=== PATIENT | female | born 1950 | race Hispanic/Latino ===

== ENCOUNTER 2017-08-30 10:57 | Outpatient (RCR) | payer BC ==
[~2017-08-30 10:57] MED LIST: CANASA1000 MG RC; DICLOFENAC POTA50 MG PO; HYOSCYAMINE0.125 M1 SL; HYZAAR 100-12.1 EACH PO; LIALDA1.2 GM PO; LIDOCAINE1 EA TOP; LOSARTAN-HCTZ1 EACH PO; METOPROLOL SUCC50 MG PO; PROAIR HFA INH8.5 GM INH; TYLENOL PO; TYLENOL WITH C1 EACH PO; VITAMIN D2000 UNI1 PO; VOLTAREN100 GM TOP; XANAX0.25 MG PO
== END 2017-09-01 ==
LOC: PT 10:57
PROVIDERS: ATTEND Specialist
DX: Z96.652 Presence of left artificial knee joint (principal); Z47.1 Aftercare following joint replacement surgery; M25.562 Pain in left knee; M25.662 Stiffness of left knee, not elsewhere classified; M62.81 Muscle weakness (generalized); R26.2 Difficulty in walking, not elsewhere classified

== ENCOUNTER → 2017-10-02 | Outpatient (RCR) | payer BC | LOC: PT 09-04 12:57 | PROVIDERS: ATTEND Specialist | DX: Z96.652 Presence of left artificial knee joint (principal); Z47.1 Aftercare following joint replacement surgery; M25.562 Pain in left knee; M25.662 Stiffness of left knee, not elsewhere classified; R26.2 Difficulty in walking, not elsewhere classified; M62.81 Muscle weakness (generalized) ==

== ENCOUNTER 2017-10-04 13:17 | Outpatient (RCR) | payer BC | END 2017-10-30 | LOC: PT 13:17 | PROVIDERS: ATTEND Specialist | DX: Z96.652 Presence of left artificial knee joint (principal); Z47.1 Aftercare following joint replacement surgery; M25.562 Pain in left knee; M25.661 Stiffness of right knee, not elsewhere classified ==

== ENCOUNTER → 2018-03-24 | Outpatient (CLI) | payer BC | LOC: MAMMO 12:03 | PROVIDERS: ATTEND Internal Medicine | DX: Z12.31 Encounter for screening mammogram for malignant neoplasm of breast (principal) | CPT/HCPCS: 77067 ==

== ENCOUNTER → 2018-04-18 | Outpatient (CLI) | payer BC ==
--- NOTE | 2018-04-18 19:30 | Diagnostic Imaging Report ---
EXAM: ABDOMEN-1VIEW (KUB) DATE: 04/18/2018 12:00 AM INDICATION: Pain COMPARISON: 06/06/2017 FINDINGS: Bowel gas pattern nonobstructive. Moderate stool. No distinct pneumoperitoneum, suspicious calcification, or acute osseous finding. IMPRESSION: Moderate stool. Signed by: Dr. Oskar Samayoa MD on 04/18/2018 7:26 PM
== END ==
LOC: RAD 17:41
PROVIDERS: ATTEND Internal Medicine
DX: R10.9 Unspecified abdominal pain (principal)
CPT/HCPCS: 74018

== ENCOUNTER → 2018-11-24 | Outpatient (CLI) | payer BC ==
--- NOTE | 2018-11-24 18:44 | Diagnostic Imaging Report ---
Exam: Left wrist Series. History: Cellulitis, wrist pain, gout Comparison: None. Findings: 3 views of the left wrist. There is decreased bone mineralization. Negative for acute, displaced fracture or dislocation. The joint spaces are relatively well-preserved.. No abnormal soft tissue calcification or mass. Mild soft tissue swelling in the wrist. Impression: 1. Mild soft tissue swelling without acute underlying bony abnormalities. Signed by: Dr. David Spears M.D. on 11/24/2018 6:40 PM
== END ==
LOC: RAD 16:57
PROVIDERS: ATTEND Internal Medicine
DX: M10.9 Gout, unspecified (principal)

== ENCOUNTER → 2019-06-11 | Outpatient (CLI) | payer BC ==
--- NOTE | 2019-06-11 10:34 | Diagnostic Imaging Report ---
EXAMINATION: MRI of the brain without contrast. HISTORY: Left-sided headache tingling sensation, occasional headaches, dizziness COMPARISON: None. TECHNIQUE: Sagittal T2; axial DWI, T2, FLAIR, T1-IR, T2 gradient echo; coronal FLAIR. FINDINGS: Parenchyma: 1. Few scatter and periventricular white matter T2 FLAIR hyperintensities, most likely nonspecific chronic microvascular ischemic changes. 2. No mass, hemorrhage, acute or chronic infarcts. Skull: Unremarkable. Vessels: Expected flow voids present in the major arteries and dural sinuses. Extra-axial spaces: No abnormal signal intensity or mass effect. Brain volume: Within normal limits for age. Ventricles: No hydrocephalus or displacement. Foramen magnum: Unremarkable. Sella: Unremarkable. Paranasal / mastoid sinuses: No significant inflammatory disease. IMPRESSION: 1. Mild white matter chronic microvascular ischemic changes. 2. Otherwise no intracranial abnormalities, particularly no mass, hemorrhage, infarct or demyelinating lesions. Signed by: Dr. Minnie Sullivan M.D. on 06/11/2019 10:31 AM
== END ==
LOC: MRI 08:47
PROVIDERS: ATTEND Internal Medicine
DX: R20.0 Anesthesia of skin (principal)
CPT/HCPCS: 70551

== ENCOUNTER → 2021-01-05 | Outpatient (CLI) | payer BC ==
[~2021-01-05] MED LIST changes: +IOPAMIDOL 370 MG/ML 200 ML INFUS..BTL INJ ONE; +SODIUM CHLORIDE 0.9% 100 ML ONE
[2021-01-05 14:03] LABS: BLOOD UREA NITROGEN 20 mg/dL (7-26); BUN/CREATININE RATIO 23 (6-25); CREATININE, SERUM 0.87 mg/dL (0.57-1.11); EST GLOMERULAR FILTRATION RATE > 60 ML/MIN (60-)
== END ==
LOC: CT 13:16
PROVIDERS: ATTEND Internal Medicine
DX: E11.51 Type 2 diabetes mellitus with diabetic peripheral angiopathy without gangrene (principal)
CPT/HCPCS: 36415; 75635; 82565; 84520; J7050; Q9967

== ENCOUNTER → 2021-12-26 | Outpatient (CLI) | payer BC ==
[~2021-12-26] MED LIST changes: -IOPAMIDOL 370 MG/ML 200 ML INFUS..BTL INJ ONE; -SODIUM CHLORIDE 0.9% 100 ML ONE
== END ==
LOC: MAMMO 10:22
PROVIDERS: ATTEND Internal Medicine
DX: Z12.31 Encounter for screening mammogram for malignant neoplasm of breast (principal)
CPT/HCPCS: 77067

== ENCOUNTER 2022-06-08 09:51 | Observation (INO) | payer BC ==
[~2022-06-08] VITALS: Ht 162.6 cm; Wt 108.9 kg
[2022-06-08] VITALS (7 sets, daily range): BP systolic 146–160; BP diastolic 50–67
[2022-06-08] MEDS ORDERED: SODIUM CHLORIDE FLUSH 10 ML SYR IV PRN (10:15)
[2022-06-08] MEDS ORDERED: SODIUM CHLORIDE 0.9% 1000ML 1,000 ML IV ONE (10:15)
[2022-06-08 10:16] LABS: BASOPHILS # (AUTO) 0.1 (0.0-0.1); BASOPHILS % 0.5 % (0.0-1.0); EOSINOPHILS # (AUTO) 0.1 (0.0-0.4); EOSINOPHILS % 0.4 % (0.0-6.0); HEMOGLOBIN 14.8 g/dL (12.0-16.0); LYMPHOCYTES # (AUTO) 4.6 (1.0-3.2); LYMPHOCYTES % 40.5 % (18.0-39.1); MEAN CORPUSCULAR HEMOGLOBIN 31.6 pg (28-32); MEAN CORPUSCULAR HGB CONC 34.4 g/dL (31-35); MEAN CORPUSCULAR VOLUME 91.9 fL (81-99); MONOCYTES # (AUTO) 0.5 (0.2-0.8); NEUTROPHILS # (AUTO) 6.2 (2.1-6.9); NEUTROPHILS % 54.2 % (38.7-80.0); PLATELET COUNT 251 x10e3/uL (140-360); RED BLOOD COUNT 4.68 x10e6/uL (3.6-5.1); RED CELL DISTRIBUTION WIDTH 13.2 % (11.7-14.4)
[2022-06-08 10:35] LABS: CLARITY,URINE CLEAR (CLEAR); COLOR,URINE YELLOW (YELLOW); KETONES,URINE NEGATIVE (NEGATIVE); LEUKOCYTE ESTERASE ,URINE NEGATIVE (NEGATIVE); NITRITE,URINE NEGATIVE (NEGATIVE); PROTEIN,URINE DIPSTICK NEGATIVE (NEGATIVE); URINE UROBILINOGEN 0.2 mg/dL (0.2 - 1)
[2022-06-08 10:39] LABS: ALANINE AMINOTRANSFERASE 27 IU/L (0-55); ALBUMIN/GLOBULIN RATIO 1.1 (0.8-2.0); ALKALINE PHOSPHATASE 71 IU/L (40-150); ANION GAP 18.1 mmol/L (8-16); BLOOD UREA NITROGEN 14 mg/dL (7-26); BUN/CREATININE RATIO 15 (6-25); CALCIUM 9.6 mg/dL (8.4-10.2); CARBON DIOXIDE 20 mmol/L (22-29); CHLORIDE 103 mmol/L (98-107); CREATININE, SERUM 0.92 mg/dL (0.57-1.11); GLUCOSE 157 mg/dL (74-118); POTASSIUM 4.1 mmol/L (3.5-5.1); SODIUM 137 mmol/L (136-145)
[2022-06-08 10:51] LABS: BACTERIA,URINE MODERATE /HPF; EPITHELIAL CELLS,URINE FEW /LPF; RBC,URINE 0-5 /HPF (0-5); WBC,URINE (MAN) 0-5 /HPF (0-5)
[2022-06-08] MEDS ORDERED: COLACE100 M1 PO (13:16)
[2022-06-08] MEDS ORDERED: ONDANSETRON HCL INJ 2MG/ML 2ML 2 MG/ML VIAL IV STA (13:17)
[2022-06-08] MEDS ORDERED: ACETAMINOPHEN 325 MG TAB PO PRN (14:45)
[2022-06-08] MEDS ORDERED: ASPIRIN 81 MG CHEW TAB PO ONE (14:45)
[2022-06-08] MEDS ORDERED: HYDRALAZINE HC100 MG PO (18:21)
[2022-06-08] MEDS ORDERED: ONDANSETRON ODT4 MG PO (18:21)
[2022-06-08] MEDS ORDERED: tylenol #3 (18:21)
[2022-06-08] MEDS ORDERED: NAPROXEN250 MG PO (18:21)
[2022-06-08] MEDS ORDERED: METFORMIN HCL500 M1 PO (18:21)
[2022-06-08] MEDS ORDERED: MELOXICAM15 MG (18:21)
[2022-06-08] MEDS ORDERED: NAMENDA10 MG PO (18:22)
[2022-06-08] MEDS ORDERED: ATORVASTATIN CA10 MG PO (18:22)
[2022-06-08] MEDS: SODIUM CHLORIDE 0.9% 1000ML 1,000 ML IV SCH (18:24)
[2022-06-09] VITALS (8 sets, daily range): BP systolic 116–156; BP diastolic 40–77
[2022-06-09] MEDS ORDERED: ONDANSETRON HCL INJ 2MG/ML 2ML 2 MG/ML VIAL IV PRN
[2022-06-09] MEDS ORDERED: ACETAMINOPHEN/CODEINE 300MG - 30MG TAB PO PRN
[2022-06-09] MEDS: SODIUM CHLORIDE 0.9% 1000ML 1,000 ML IV SCH ×3 (02:58→22:40)
[2022-06-09] MEDS ORDERED: DEXTROSE 50% SYRINGE 50 ML IV PRN ×2 (03:15→15:15)
[2022-06-09 07:12] LABS: BASOPHILS % 0.6 % (0.0-1.0); EOSINOPHILS # (AUTO) 0.2 (0.0-0.4); EOSINOPHILS % 2.3 % (0.0-6.0); HEMATOCRIT 37.5 % (34.2-44.1); HEMOGLOBIN 12.3 g/dL (12.0-16.0); LYMPHOCYTES # (AUTO) 3.3 (1.0-3.2); LYMPHOCYTES % 50.6 % (18.0-39.1); MEAN CORPUSCULAR HEMOGLOBIN 31.1 pg (28-32); MEAN CORPUSCULAR HGB CONC 32.8 g/dL (31-35); MEAN CORPUSCULAR VOLUME 94.7 fL (81-99); MONOCYTES # (AUTO) 0.5 (0.2-0.8); NEUTROPHILS # (AUTO) 2.6 (2.1-6.9); NEUTROPHILS % 39.2 % (38.7-80.0); PLATELET COUNT 201 x10e3/uL (140-360); RED BLOOD COUNT 3.96 x10e6/uL (3.6-5.1); RED CELL DISTRIBUTION WIDTH 13.5 % (11.7-14.4)
[2022-06-09] MEDS ORDERED: INSULIN LISPRO 100 UNIT/1 ML 3ML VIAL SQ SCH (07:30)
[2022-06-09 07:41] LABS: ALBUMIN 3.1 g/dL (3.5-5.0); ANION GAP 13.9 mmol/L (8-16); CALCIUM 8.4 mg/dL (8.4-10.2); CREATININE, SERUM 0.89 mg/dL (0.57-1.11); POTASSIUM 3.9 mmol/L (3.5-5.1)
[2022-06-09 07:49] LABS: CREATINE KINASE MB 1.2 ng/mL (0-5.0)
[2022-06-09] MEDS: ENOXAPARIN SOD INJ 40 MG/0.4 ML SYR SC SCH (09:19)
[2022-06-09] MEDS: INSULIN LISPRO 100 UNIT/1 ML 3ML VIAL SQ SCH ×4 (09:20→20:54)
[2022-06-09] MEDS: METOPROLOL SUCCINATE 50 MG TAB XL PO SCH (12:25)
[2022-06-09] MEDS ORDERED: DIPHENHYDRAMINE HCL 25 MG CAP PO PRN (15:15)
[2022-06-09] MEDS ORDERED: POTASSIUM CHLORIDE 20 MEQ TAB CR PO PRN (15:15)
[2022-06-09] MEDS ORDERED: BENZONATATE 100 MG CAP PO PRN (15:15)
[2022-06-09] MEDS ORDERED: ALBUTEROL/IPRATROPIUM 3 ML NEB NEB PRN (15:15)
[2022-06-09] MEDS ORDERED: MELATONIN 5 MG TABLET PO PRN (15:15)
[2022-06-09] MEDS ORDERED: DOCUSATE SODIUM 100 MG CAP PO PRN (15:15)
[2022-06-09] MEDS ORDERED: LIDOCAINE 4% PATCH TP PRN (15:15)
[2022-06-09] MEDS: MEMANTINE 10 MG TAB PO SCH (17:22)
[2022-06-09] MEDS ORDERED: ATORVASTATIN 10 MG TAB PO SCH ×2 (21:00)
[2022-06-10 00:17] VITALS: BP_SYST 122; BP_SYST 134; BP_DIAS 51; BP_DIAS 58
[2022-06-10 04:18] VITALS: BP 131/57
[2022-06-10 06:18] LABS: BASOPHILS # (AUTO) 0.1 (0.0-0.1); EOSINOPHILS # (AUTO) 0.3 (0.0-0.4); EOSINOPHILS % 3.6 % (0.0-6.0); HEMATOCRIT 37.2 % (34.2-44.1); HEMOGLOBIN 12.1 g/dL (12.0-16.0); LYMPHOCYTES # (AUTO) 3.4 (1.0-3.2); LYMPHOCYTES % 46.9 % (18.0-39.1); MEAN CORPUSCULAR HEMOGLOBIN 30.9 pg (28-32); MEAN CORPUSCULAR HGB CONC 32.5 g/dL (31-35); MEAN CORPUSCULAR VOLUME 94.9 fL (81-99); MONOCYTES # (AUTO) 0.5 (0.2-0.8); MONOCYTES % 6.3 % (4.4-11.3); NEUTROPHILS # (AUTO) 3.1 (2.1-6.9); NEUTROPHILS % 41.8 % (38.7-80.0); PLATELET COUNT 179 x10e3/uL (140-360); RED BLOOD COUNT 3.92 x10e6/uL (3.6-5.1); RED CELL DISTRIBUTION WIDTH 13.3 % (11.7-14.4)
[2022-06-10 06:41] LABS: ANION GAP 13.1 mmol/L (8-16); CALCIUM 8.4 mg/dL (8.4-10.2); CREATININE, SERUM 0.83 mg/dL (0.57-1.11); POTASSIUM 4.1 mmol/L (3.5-5.1)
[2022-06-10 06:56] LABS: THYROID STIMULATING HORMONE 3.009 uIU/mL (0.350-4.940)
[2022-06-10] MEDS ORDERED: PANTOPRAZOLE SOD 40 MG TABEC PO SCH (07:30)
[2022-06-10] MEDS: INSULIN LISPRO 100 UNIT/1 ML 3ML VIAL SQ SCH ×2 (07:30→13:05)
[2022-06-10 08:39] LABS: MAGNESIUM 1.9 MG/DL (1.3-2.1); PHOSPHORUS 3.4 MG/DL (2.3-4.7)
[2022-06-10 09:04] VITALS: BP 149/73
[2022-06-10] MEDS: METOPROLOL SUCCINATE 50 MG TAB XL PO SCH (09:08)
[2022-06-10] MEDS: MEMANTINE 10 MG TAB PO SCH (09:08)
[2022-06-10] MEDS: ENOXAPARIN SOD INJ 40 MG/0.4 ML SYR SC SCH (09:11)
[2022-06-10 09:46] VITALS: BP 149/73
[2022-06-10 12:28] VITALS: BP 149/62
[2022-06-10] MEDS: SODIUM CHLORIDE 0.9% 1000ML 1,000 ML IV SCH (13:21)
[2022-06-10] MEDS ORDERED: LOSARTAN POTASS25 MG PO (14:11)
[2022-06-10] MEDS ORDERED: LOSARTAN POTASSIUM 25 MG TAB PO SCH (14:30)
== END 2022-06-10 15:45 | disposition home or self-care (01) ==
LOC: ER 09:53 → ERHOLD 14:38 → MED/SURG3 16:08
PROVIDERS: ADMIT Internal Medicine; ATTEND Internal Medicine
DX: E86.0 Dehydration (principal); R53.1 Weakness; R42 Dizziness and giddiness; R55 Syncope and collapse; E11.9 Type 2 diabetes mellitus without complications; I10 Essential (primary) hypertension; E78.5 Hyperlipidemia, unspecified; G89.4 Chronic pain syndrome; E66.01 Morbid (severe) obesity due to excess calories; M19.90 Unspecified osteoarthritis, unspecified site; Z83.3 Family history of diabetes mellitus; Z82.49 Family history of ischemic heart disease and other diseases of the circulatory system; Z68.41 Body mass index [BMI] 40.0-44.9, adult; Z88.1 Allergy status to other antibiotic agents; Z88.8 Allergy status to other drugs, medicaments and biological substances; Z20.822 Contact with and (suspected) exposure to COVID-19; Z79.84 Long term (current) use of oral hypoglycemic drugs
CPT/HCPCS: 36415 ×3; 70450; 71045; 80053 ×3; 80061; 81001; 82550 ×2; 82553 ×2; 82948 ×3; 83036; 83735; 84100; 84443; 84484 ×2; 85025 ×3; 93005 ×2; 93306; 94760; 94799 ×2; 97116; 97161; 99284; G0378 ×3; J1650 ×2; J2405; J7030 ×3; S0164; U0002

== ENCOUNTER → 2022-12-21 | Outpatient (CLI) | payer BC ==
[~2022-12-21] MED LIST changes: +ATORVASTATIN CA10 MG PO; +COLACE100 M1 PO; +HYDRALAZINE HC100 MG PO; +LOSARTAN POTASS25 MG PO; +MELOXICAM15 MG; +METFORMIN HCL500 M1 PO; +NAMENDA10 MG PO; +NAPROXEN250 MG PO; +ONDANSETRON ODT4 MG PO; +tylenol #3
== END ==
LOC: CT 11:42
PROVIDERS: ATTEND Internal Medicine
DX: S06.0X0A Concussion without loss of consciousness, initial encounter (principal)
CPT/HCPCS: 70450

== ENCOUNTER 2025-05-27 13:34 | Emergency (ER) | payer BC, OTHER ==
[~2025-05-27] VITALS: Ht 160 cm; Wt 86.2 kg
[2025-05-27 13:50] VITALS: TEMP 98.6
[2025-05-27] MEDS ORDERED: LOSARTAN POTASS50 MG PO (14:28)
[2025-05-27] MEDS ORDERED: HYDROCODON-ACE1 EA11 PO (14:28)
[2025-05-27] MEDS ORDERED: GABAPENTIN600 MG PO (14:28)
[2025-05-27] MEDS ORDERED: LATANOPROST2.5 ML OU (14:28)
[2025-05-27] MEDS ORDERED: VITAMIN D250 MC1 PO (14:28)
[2025-05-27] MEDS: SODIUM CHLORIDE 0.9% 1000ML 1,000 ML IV STA (14:37)
[2025-05-27 14:57] LABS: BASOPHILS % 0.6 % (0.0-1.0); EOSINOPHILS % 3.3 % (0.0-6.0); LYMPHOCYTES % 31.2 % (18.0-39.1); MONOCYTES % 5.9 % (4.4-11.3); NEUTROPHILS % 58.7 % (38.7-80.0); RED CELL DISTRIBUTION WIDTH 13.9 % (11.7-14.4)
[2025-05-27] MEDS: ONDANSETRON HCL INJ 2MG/ML 2ML 2 MG/ML VIAL IV STA (15:03)
[2025-05-27 15:08] LABS: EST GLOMERULAR FILTRATION RATE 67.0 ML/MIN (>=60)
[2025-05-27 15:17] LABS: EPITHELIAL CELLS,URINE FEW /LPF; LEUKOCYTE ESTERASE ,URINE TRACE (NEGATIVE); PROTEIN,URINE DIPSTICK NEGATIVE (NEGATIVE); URINE UROBILINOGEN 0.2 mg/dL (0.2 - 1)
[2025-05-27] MEDS ORDERED: IOPAMIDOL 370 MG/ML 100 ML INFUS..BTL INJ ONE (15:26)
[2025-05-27] MEDS ORDERED: KETOROLAC TROMETHAMINE 30 MG/ML VIAL IV STA (16:38)
[2025-05-27] MEDS ORDERED: PYRIDIUM100 MG PO (16:53)
[2025-05-27] MEDS ORDERED: CEFUROXIME500 MG PO (16:53)
[2025-05-27 17:40] VITALS: PULSE 78; RESP 16; O2SAT 97
== END 2025-05-27 17:45 | disposition home or self-care (01) ==
LOC: ER 13:50
DX: R10.31 Right lower quadrant pain (principal); N39.0 Urinary tract infection, site not specified; I10 Essential (primary) hypertension; E11.9 Type 2 diabetes mellitus without complications; J45.909 Unspecified asthma, uncomplicated; F41.9 Anxiety disorder, unspecified; Z96.651 Presence of right artificial knee joint; Z87.19 Personal history of other diseases of the digestive system
CPT/HCPCS: 36415; 74177; 80053; 81001; 83735; 85025; 87086; 99284; J0692; J2405; J2470; J7030; Q9967; 87186